=== PATIENT | female | born 1955 | race African-American/Black ===

== ENCOUNTER 2018-10-06 11:49 | Emergency (ER) | payer BC, OTHER ==
[~2018-10-06] VITALS: Ht 160 cm; Wt 99.8 kg
[2018-10-06 13:05] VITALS: BP 132/73
[2018-10-06] MEDS ORDERED: ACETAMINOPHEN/CODEINE#3 (300/30mg) TAB PO ONE (13:45)
== END 2018-10-06 13:54 | disposition home or self-care (01) ==
LOC: ER 11:54
DX: S16.1XXA Strain of muscle, fascia and tendon at neck level, initial encounter (principal); S20.212A Contusion of left front wall of thorax, initial encounter; I10 Essential (primary) hypertension; K21.9 Gastro-esophageal reflux disease without esophagitis; V43.62XA Car passenger injured in collision with other type car in traffic accident, initial encounter; Y93.89 Activity, other specified; Y92.488 Other paved roadways as the place of occurrence of the external cause; Y99.8 Other external cause status
CPT/HCPCS: 71046; 93005

== ENCOUNTER 2018-10-10 14:30 | Emergency (ER) | payer BC ==
[~2018-10-10] VITALS: Ht 157.5 cm; Wt 99.8 kg
[2018-10-10 15:27] VITALS: BP 154/58
[2018-10-10] MEDS ORDERED: METHOCARBAMOL 500 MG TAB PO ONE (16:00)
== END 2018-10-10 16:32 | disposition home or self-care (01) ==
LOC: ER 14:37
DX: S16.1XXD Strain of muscle, fascia and tendon at neck level, subsequent encounter (principal); R07.89 Other chest pain; I10 Essential (primary) hypertension; K21.9 Gastro-esophageal reflux disease without esophagitis; Z88.8 Allergy status to other drugs, medicaments and biological substances; X58.XXXD Exposure to other specified factors, subsequent encounter